=== PATIENT | male | born 1975 | race Caucasian/White ===

== ENCOUNTER 2016-09-21 11:54 | Emergency (ER) | payer BC, OTHER ==
[~2016-09-21] VITALS: Ht 182.9 cm; Wt 133.4 kg
[~2016-09-21 11:54] MED LIST: ALBU1AER9 INH; ONDA4TAB7 SL; ZNTT/150 PO
[2016-09-21 11:56] VITALS: TEMP 36.8; Ht 182.9 cm; Wt 133.4 kg
[2016-09-21] MEDS ORDERED: SODIUM CHLORIDE 0.9% 1000ML 1,000 ML IV STA (12:10)
[2016-09-21] MEDS ORDERED: KETOROLAC TROMETHAMINE 30 MG/ML VIAL IV STA (12:10)
[2016-09-21] MEDS ORDERED: ATOR-54 PO (12:17)
[2016-09-21] MEDS ORDERED: CARV6.252 PO (12:17)
[2016-09-21] MEDS ORDERED: VNTHFA/IN INH (12:17)
[2016-09-21] MEDS ORDERED: POTA20TA16 PO (12:17)
[2016-09-21] MEDS ORDERED: MTR800 PO (12:17)
[2016-09-21] MEDS ORDERED: ZNTT/150 PO (12:17)
[2016-09-21] MEDS ORDERED: GLC/500 PO (12:17)
[2016-09-21] MEDS ORDERED: TAMS0.4C38 PO ×2 (12:17→14:10)
[2016-09-21] MEDS ORDERED: TRAM-10 PO (12:17)
[2016-09-21] MEDS ORDERED: ONDA4TAB46 PO (12:17)
[2016-09-21] MEDS ORDERED: FURO-85 PO (12:17)
[2016-09-21] MEDS ORDERED: LISI-461 PO (12:17)
[2016-09-21] MEDS ORDERED: ASPI325T45 PO (12:18)
[2016-09-21 12:34] LABS: BASO % 0.3 %; BASO ABS # 0.02 K/uL (0-0.2); COMPLETE YES; EOS % 3.7 %; HEMATOCRIT 42.7 % (42-52); LYMPH ABS # 1.78 K/uL (1.2-3.4); MEAN CELL VOLUME 94.7 fL (80-100); MEAN CORPUSCULAR HEMOGLOBIN 32.4 pg (25-34); MEAN CORPUSCULAR HGB CONC 34.2 g/dl (32-36); MEAN PLATELET VOLUME 10.6 fL (7.4-10.4); MONO % 9.3 %; NEUT % 63.7 %; PLATELET COUNT 192 K/uL (130-400); RED BLOOD COUNT 4.51 M/uL (4.7-6.1); WHITE BLOOD COUNT 7.75 K/uL (4.8-10.8)
[2016-09-21 12:39] LABS: URINE APPEARANCE CLEAR (CLEAR); URINE BILIRUBIN NEG (NEG); URINE COLOR YELLOW; URINE EPITHELIAL CELL AUTO 0-5 /lpf (0-5); URINE NITRITE NEG (NEG); URINE SPECIFIC GRAVITY 1.017 (1.000-1.030); UROBILINOGEN NEG (NEG)
[2016-09-21 12:40] LABS: MANUAL MICROSCOPIC REQUIRED? NO; REVIEW REQ? NO
--- NOTE | 2016-09-21 13:07 | DIAGNOSTIC IMAGING REPORT ---
KUB HISTORY: Pt c/o Rt sided flank pain COMPARISON: Abdomen and pelvis CT 06/04/2013. FINDINGS: The bowel gas pattern is unremarkable. There are no dilated loops of small bowel to suggest an obstruction. Multiple calcifications within the right deep pelvis consistent with phlebolith. There is also 4 mm calcification overlying the right L5 transverse process. This likely represents a mid right ureteral stone. No renal calculi identified. No pneumoperitoneum or pneumatosis. IMPRESSION: A 4 mm calcification overlying the right L5 transverse process consistent with a mid right ureteral stone. Electronically signed by: Barrington Shelton M.D. 09/21/2016 1:06 PM Dictated Date/Time: 09/21/2016 1:02 PM
[2016-09-21 13:45] LABS: BUN/CREATININE RATIO 10.5 (10-20); CALCIUM 9.2 mg/dl (8.5-10.1); CREATININE 1.1 mg/dl (0.60-1.40); POTASSIUM 4.1 mmol/L (3.5-5.1)
--- NOTE | 2016-09-21 13:53 | DIAGNOSTIC IMAGING REPORT ---
EXAMINATION: RENAL ULTRASOUND CLINICAL HISTORY: Right flank pain KUB DATED 09/21/2016 COMPARISON STUDY: CT scan dated 06/04/2013 FINDINGS: The right kidney measures 14.8 cm. The left kidney measures 12.6 cm. There is mild to moderate right-sided hydronephrosis. There is no left-sided hydronephrosis. There are no renal masses. No bladder abnormalities are visualized. The left ureteral jet was visualized. The right ureteral jet was not visualized with certainty. IMPRESSION : Mild to moderate right-sided hydronephrosis. Given history of right flank pain, and the calcification visualized on the KUB, the findings are suspicious for an obstructing right ureteral calculus. Electronically signed by: Dima Macdonald M.D. 09/21/2016 1:52 PM Dictated Date/Time: 09/21/2016 1:50 PM
--- NOTE | 2016-09-21 13:54 | DIAGNOSTIC IMAGING REPORT ---
SCROTAL ULTRASOUND CLINICAL HISTORY: Right testicular pain. COMPARISON STUDY: None. TECHNIQUE: Grayscale and color and duplex Doppler sonography of the scrotum was performed. FINDINGS: The right testis measures 4.8 x 2.9 x 2.5 cm and the left measures 5 x 2.7 x 2.9 cm. Color flow within each testis is symmetric. There is no testicular mass. There is no evidence of epididymitis. There are small bilateral varicoceles. IMPRESSION: 1. Normal sonographic appearance of the testes. No evidence of testicular torsion. 2. No evidence of epididymitis. 3. Small bilateral varicoceles. Electronically signed by: Rajesh Camejo M.D. 09/21/2016 1:53 PM Dictated Date/Time: 09/21/2016 1:52 PM
[2016-09-21] MEDS ORDERED: TAMSULOSIN HCL 0.4 MG CAP PO ONE (14:00)
[2016-09-21] MEDS ORDERED: OXYC-57 PO (14:09)
--- NOTE | 2016-09-21 14:14 | EMERGENCY ROOM VISIT NOTE ---
History Report prepared by Melody: Jayden Peace Under the Supervision of: Dr. Riki Bang M.D. First contact with patient: 12:00 Chief Complaint: ABDOMINAL PAIN Stated Complaint: ABDOMINAL PAIN History of Present Illness The patient is a 40 year old male who presents to the Emergency Room with complaints of constant right lower quadrant abdominal pain beginning last week. He has a history of kidney stones. He had an ultrasound and CT last week which did not reveal any kidney stones. The patient also complains of right testicular swelling and right flank pain. He states that his pain is often improved with Toradol. He states that the pain in his back and abdomen generally worsens throughout the day. Source of History: patient Onset: Last week Position: abdomen (RLQ) Timing: constant Modifying Factors (Relieving): other (Toradol) Note: The patient also complains of right testicular swelling and right flank pain. Review of Systems See HPI for pertinent positives & negatives. A total of 10 systems reviewed and were otherwise negative. Past Medical & Surgical Medical Problems: (1) History of kidney stones Family History Diabetes mellitus FH: heart disease Hypertension Kidney stones Social History Smoking Status: Current Every Day Smoker Alcohol Use: occasionally Marital Status: Housing Status: lives with family Occupation Status: employed Current/Historical Medications Scheduled Aspirin (Aspirin), 325 MG PO DAILY Atorvastatin (Lipitor), 20 MG PO DAILY Carvedilol (Coreg), 6.25 MG PO BID Furosemide (Lasix), 20 MG PO DAILY Lisinopril (Zestril), 10 MG PO DAILY Metformin Hcl (Glucophage), 500 MG PO BID Potassium Ext Rel (Klor-Con), 20 MEQ PO DAILY Ranitidine (Zantac), 150 MG PO BID Tamsulosin Hcl (Flomax), 0.4 MG PO DAILY Tamsulosin Hcl (Flomax), 0.4 MG PO DAILY Scheduled PRN Albuterol Hfa (Ventolin Hfa), 2 PUFFS INH Q4H PRN for Cough Ibuprofen (Ibuprofen), 800 MG PO BID PRN for Pain Ondansetron Hcl (Zofran), 4 MG PO Q6 PRN for Nausea Oxycodone/Acetaminophen 5MG/325MG (Percocet 5MG/325MG), 1-2 TAB PO Q4H PRN for Pain Tramadol (Ultram), 50 MG PO Q8H PRN for Pain Allergies Coded Allergies: No Known Allergies (Verified Allergy, _, 03/14/09) Physical Exam Vital Signs Date Time Temp Pulse Resp B/P Pulse Ox O2 Delivery O2 Flow Rate FiO2 09/21/16 14:28 64 16 140/81 96 09/21/16 13:47 58 16 131/84 96 Room Air 09/21/16 12:30 60 09/21/16 11:56 36.8 70 18 152/96 93 Room Air Physical Exam GENERAL: Patient is a healthy-appearing well-nourished HEAD: Normocephalic atraumatic EYES: Ocular movements intact pupils equal and react to light OROPHARYNX mucous membranes are moist no exudates present no erythema or edema present NECK: Supple no nuchal rigidity CHEST: Good equal expansion LUNGS: Clear and equal to auscultation CARDIAC: Normal S1 and S2 ABDOMEN: Soft nontender no guarding BACK: No CVA tenderness EXTREMITIES: No pain upon palpation normal muscle strength in all groups no clubbing cyanosis or edema NEURO: Patient is following commands is answering questions appropriately. Alert and oriented x3 Cranial Nerves 2-12 grossly intact Medical Decision & Procedures ER Provider Diagnostic Interpretation: X-ray results as stated below per interpretation by me and the radiologist. US results as stated below per my review and radiologist interpretation: SCROTAL ULTRASOUND FINDINGS: The right testis measures 4.8 x 2.9 x 2.5 cm and the left measures 5 x 2.7 x 2.9 cm. Color flow within each testis is symmetric. There is no testicular mass. There is no evidence of epididymitis. There are small bilateral varicoceles. IMPRESSION: 1. Normal sonographic appearance of the testes. No evidence of testicular torsion. 2. No evidence of epididymitis. 3. Small bilateral varicoceles. Electronically signed by: Rajesh Camejo M.D. EXAMINATION: RENAL ULTRASOUND FINDINGS: The right kidney measures 14.8 cm. The left kidney measures 12.6 cm. There is mild to moderate right-sided hydronephrosis. There is no left-sided hydronephrosis. There are no renal masses. No bladder abnormalities are visualized. The left ureteral jet was visualized. The right ureteral jet was not visualized with certainty. IMPRESSION : Mild to moderate right-sided hydronephrosis. Given history of right flank pain, and the calcification visualized on the KUB, the findings are suspicious for an obstructing right ureteral calculus. Electronically signed by: Dima Macdonald M.D. KUB FINDINGS: The bowel gas pattern is unremarkable. There are no dilated loops of small bowel to suggest an obstruction. Multiple calcifications within the right deep pelvis consistent with phlebolith. There is also 4 mm calcification overlying the right L5 transverse process. This likely represents a mid right ureteral stone. No renal calculi identified. No pneumoperitoneum or pneumatosis. IMPRESSION: A 4 mm calcification overlying the right L5 transverse process consistent with a mid right ureteral stone. Electronically signed by: Barrington Shelton M.D. Laboratory Results 09/21/16 12:20 Red Blood Count 4.51, Mean Corpuscular Volume 94.7, Mean Corpuscular Hemoglobin 32.4, Mean Corpuscular Hemoglobin Concent 34.2, Mean Platelet Volume 10.6, Neutrophils (%) (Auto) 63.7, Lymphocytes (%) (Auto) 23.0, Monocytes (%) (Auto) 9.3, Eosinophils (%) (Auto) 3.7, Basophils (%) (Auto) 0.3, Neutrophils # (Auto) 4.94, Lymphocytes # (Auto) 1.78, Monocytes # (Auto) 0.72, Eosinophils # (Auto) 0.29, Basophils # (Auto) 0.02 09/21/16 12:20 Test 09/21/16 12:20 White Blood Count 7.75 K/uL (4.8-10.8) Red Blood Count 4.51 M/uL (4.7-6.1) Hemoglobin 14.6 g/dL (14.0-18.0) Hematocrit 42.7 % (42-52) Mean Corpuscular Volume 94.7 fL (80-100) Mean Corpuscular Hemoglobin 32.4 pg (25-34) Mean Corpuscular Hemoglobin Concent 34.2 g/dl (32-36) Platelet Count 192 K/uL (130-400) Mean Platelet Volume 10.6 fL (7.4-10.4) Neutrophils (%) (Auto) 63.7 % Lymphocytes (%) (Auto) 23.0 % Monocytes (%) (Auto) 9.3 % Eosinophils (%) (Auto) 3.7 % Basophils (%) (Auto) 0.3 % Neutrophils # (Auto) 4.94 K/uL (1.4-6.5) Lymphocytes # (Auto) 1.78 K/uL (1.2-3.4) Monocytes # (Auto) 0.72 K/uL (0.11-0.59) Eosinophils # (Auto) 0.29 K/uL (0-0.5) Basophils # (Auto) 0.02 K/uL (0-0.2) RDW Standard Deviation 44.5 fL (36.4-46.3) RDW Coefficient of Variation 12.8 % (11.5-14.5) Immature Granulocyte % (Auto) 0.0 % Immature Granulocyte # (Auto) 0.00 K/uL (0.00-0.02) Urine Color YELLOW Urine Appearance CLEAR (CLEAR) Urine pH 5.0 (4.5-7.5) Urine Specific [place] 1.017 (1.000-1.030) Urine Protein NEG (NEG) Urine Glucose (UA) NEG (NEG) Urine Ketones NEG (NEG) Urine Occult Blood 1+ (NEG) Urine Nitrite NEG (NEG) Urine Bilirubin NEG (NEG) Urine Urobilinogen NEG (NEG) Urine Leukocyte Esterase NEG (NEG) Urine WBC (Auto) 1-5 /hpf (0-5) Urine RBC (Auto) 0-4 /hpf (0-4) Urine Hyaline Casts (Auto) 1-5 /lpf (0-5) Urine Epithelial Cells (Auto) 0-5 /lpf (0-5) Urine Bacteria (Auto) NEG (NEG) Anion Gap 8.0 mmol/L (3-11) Est Creatinine Clear Calc Drug Dose 124.9 ml/min Estimated GFR () 96.1 Estimated GFR (Non- 82.9 BUN/Creatinine Ratio 10.5 (10-20) Calcium Level 9.2 mg/dl (8.5-10.1) Total Bilirubin 0.3 mg/dl (0.2-1) Direct Bilirubin 0.1 mg/dl (0-0.2) Aspartate Amino Transf (AST/SGOT) 12 U/L (15-37) Alanine Aminotransferase (ALT/SGPT) 26 U/L (12-78) Alkaline Phosphatase 104 U/L (45-117) Total Protein 7.9 gm/dl (6.4-8.2) Albumin 3.9 gm/dl (3.4-5.0) Lipase 135 U/L (73-393) Labs reviewed by ED physician. Medications Administered Medications (Trade) Dose Ordered Sig/Corin Route Start Time Stop Time Status Last Admin Dose Admin Sodium Chloride (Nss 1000ml) 1,000 ml @ 999 mls/hr Q1H1M STAT IV 09/21/16 12:10 09/21/16 13:10 DC 09/21/16 12:28 999 MLS/HR Ketorolac Tromethamine (Toradol Inj) 30 mg NOW STAT IV 09/21/16 12:10 09/21/16 12:13 DC 09/21/16 12:27 30 MG Tamsulosin HCl (Flomax Cap) 0.4 mg NOW ONCE PO 09/21/16 14:00 09/21/16 14:01 DC 09/21/16 14:22 0.4 MG ED Course 1202: Past medical records reviewed. The patient was evaluated in room C7. A complete history and physical examination was performed. 1210: Ordered Toradol Inj 30 mg IV, Sodium Chloride 1000 ml @ 999 mls/hr. 1400: Ordered Flomax Cap 0.4 mg PO. 1413: Upon reexamination the patient is resting comfortably. I discussed results and treatment plan with the patient. He verbalizes agreement and understanding. The patient is ready for discharge. Medical Decision Differential diagnosis: Etiologies such as renal colic, appendicitis, diverticulitis, mesenteric ischemia, aortic pathology, infections, inflammatory bowel disease, PUD, biliary pathology, UTI, as well as others were entertained. This is a 40-year-old male who presents emergency department after having a CAT scan performed at [facility] and another CAT scan performed at [facility]. The patient reports he does not have answers as to why he is having abdominal pain that is on the right side. Does have a history of kidney stones. I was able to access [facility]'s records on this patient however the only thing present is an ultrasound. We were unable to obtain a CAT scan from [facility] however the patient does have hydronephrosis on ultrasound and what appears to be 4 mm calculi on KUB. Based on these findings I do believe the patient is probably suffering from a kidney stone. An IV was established, patient given normal saline bolus, Toradol. Repeat examination revealed improvement patient's symptoms. I recommended the patient follow-up with urology. Patient and family were in agreement with the treatment plan. Impression Primary Impression: Kidney stone Scribe Attestation The scribe's documentation has been prepared under my direction and personally reviewed by me in its entirety. I confirm that the note above accurately reflects all work, treatment, procedures, and medical decision making performed by me. Departure Information Dispostion Home / Self-Care Prescriptions Tamsulosin Hcl (FLOMAX) 0.4 Mg Cap 0.4 MG PO DAILY for 7 Days, #7 CAP Prov: Riki Bang MD 09/21/16 Oxycodone/Acetaminophen 5MG/325MG (PERCOCET 5MG/325MG) Tab 1-2 TAB PO Q4H Y for Pain, #14 TAB Prov: Riki Bang MD 09/21/16 Referrals Schuyler Resendiz M.D. (PCP) Forms Call Back Authorization, HOME CARE DOCUMENTATION FORM, IMPORTANT VISIT INFORMATION Patient Instructions Kidney Stones Expectant Therapy, Kidney Stones Prevent, Kidney Stones Risk, My [facility] Additional Instructions Follow up with DR Presley's office You received narcotic or benzodiazepene medication while in the emergency room today. Do not drive, operate heavy machinery, or drink alcohol under the influence of this medication. Take 600 mg Ibuprofen every 6 hours Take Percocet for breakthrough pain Culture results are usually available in approx 48 hours You have been examined and treated today on an emergency basis only. This is not a substitute for, or an effort to provide, complete comprehensive medical care. It is impossible to recognize and treat all injuries or illnesses in a single emergency department visit. It is therefore important that you follow up closely with Dr Resendiz. Call as soon as possible for an appointment. Thank you for your time and consideration. I look forward to speaking with you again soon. Please don't hesitate to call us if you have any questions.
[2016-09-21 14:28] VITALS: BP 140/81; PULSE 64; O2SAT 96
[2016-09-23] MEDS ORDERED: ASPCH81X PO (15:21)
[2016-09-25] MEDS ORDERED: OXYC-57 PO (08:31)
== END 2016-09-21 14:30 | disposition home or self-care (01) ==
LOC: C.EDB 11:56 → C.EDC 14:30
DX: N20.0 Calculus of kidney (principal); Z83.3 Family history of diabetes mellitus; Z82.49 Family history of ischemic heart disease and other diseases of the circulatory system; Z84.1 Family history of disorders of kidney and ureter; F17.210 Nicotine dependence, cigarettes, uncomplicated; Z79.82 Long term (current) use of aspirin; Z79.899 Other long term (current) drug therapy

== ENCOUNTER → 2016-09-22 | Outpatient (CLI) | payer BC ==
[~2016-09-22] MED LIST changes: -ALBU1AER9 INH; +ASPCH81X PO; +ASPI325T45 PO; +ATOR-54 PO; +CARV6.252 PO; +FURO-85 PO; +GLC/500 PO; +LISI-461 PO; +MTR800 PO; +ONDA4TAB46 PO; -ONDA4TAB7 SL; +OXYC-57 PO; +POTA20TA16 PO; +TAMS0.4C38 PO; +TRAM-10 PO; +VNTHFA/IN INH
== END | disposition home or self-care (01) ==
LOC: C.LABSPEC 17:13
PROVIDERS: ATTEND Nurse Practitioner Family
DX: N20.0 Calculus of kidney (principal)

== ENCOUNTER → 2016-09-25 | Day surgery (SDC) | payer BC ==
[2016-09-23 15:22] VITALS: Ht 182.9 cm; Wt 132.7 kg
--- NOTE | 2016-09-24 11:26 | DIAGNOSTIC IMAGING REPORT ---
KUB CLINICAL HISTORY: N20.0 Nephrolithiasis BE DONE EITHER THE NIGHT BEFORE OR MORN COMPARISON STUDY: 09/21/2016 FINDINGS: The mid right ureteral calculus has traveled distally and now overlies the mid sacrum. Bowel pattern is considered nonobstructive. IMPRESSION: Interval distal migration of the patient's mid right ureteral calculus. It now lies occupies a position overlying the mid right sacrum Electronically signed by: Kwame Seals M.D. 09/24/2016 11:24 AM Dictated Date/Time: 09/24/2016 11:23 AM
[~2016-09-25] VITALS: Ht 182.9 cm; Wt 132.7 kg
[~2016-09-25] MED LIST changes: +ACETAMINOPHEN 325 MG TAB PO PRN; -ASPI325T45 PO; +ATROPINE SULFATE 0.1 MG/ML 5ML SYR IV PRN; +CIPROFLOXACIN 400MG / D5W IV SCH; +EpHEDrine SULFATE INJ 50 MG/ML AMP IV PRN; +FENTANYL CITRATE INJ 50 MCG/1 ML 2 ML VIAL ONE; +HYDROmorphone INJ 1 MG/ML SYR IV PRN; +LACTATED RINGER'S 1000ML 1,000 ML IV SCH; +LIDOCAINE HCL 2% 2 ML VIAL (20MG/ML) ONE; +MIDAZOLAM HCL 1 MG/ML 2ML VIAL ONE; +ONDANSETRON INJ 2 MG/ML 2 ML VIAL IV PRN; +ONDANSETRON INJ 2 MG/ML 2 ML VIAL ONE; +OXYCODONE/ACETAMINOPHEN 5-325 TAB ONE; +OXYCODONE/ACETAMINOPHEN 5-325 TAB PO PRN; +PROPOFOL IV EMULSION 10 MG/ML 20 ML VIAL IV ONE; +SODIUM CHLORIDE 0.9% 1000ML 1,000 ML IV SCH; -TRAM-10 PO
--- NOTE | 2016-09-25 07:05 | History & Physical Bridge Note ---
H&P Re-Evaluation Bridge Note: I have examined the patient, reviewed the History & Physical and in the interval since the performance of the History & Physical I have noted the following changes of clinical significance: No changes noted
--- NOTE | 2016-09-25 08:30 | [facility] Post Operative Brief Note ---
Immediate Operative Summary Operative Date September 25, 2016. Pre-Operative Diagnosis Right Ureteral Calculi Post-Operative Diagnosis Same Procedure(s) Performed Right Renal Repeat Extracorporeal Shock Wave Lithotripsy Surgeon Dr. Flor Certified Ophthalmic Technologist Surgeon(s) None Estimated Blood Loss 0 mL Findings right mid/distal ureteral calculus - appeared to fragment Specimens None Drains none Anesthesia gen Complication(s) None Disposition Recovery Room / PACU (stable)
--- NOTE | 2016-09-25 08:35 | Discharge Instructions-SurgCtr ---
Discharge Instructions Date of Service September 25, 2016. Visit Reason for Visit: Stones Discharge Discharge Diagnosis / Problem: stone Discharge Goals Goal(s): Decrease discomfort, Improve function, Increase independence, Improve disease control Medications Stopped Medications Name(s): Aspirin last dose 09/22/16, metformin last dose 09/22/16 Activity Recommendations Activity Limitations: resume your previous activity Lifting Limitations: none Exercise/Sports Limitations: none May Resume Sexual Activity: when tolerated Shower/Bathe: no limitations Driving or Machine Use: resume 1 day after discharge Anesthesia . Post Anesthesia Instructions: If you have had General Anesthesia or IV Sedation: * Do not drive today. * Resume driving when surgeon permits. * Do not make important decisions or sign legal documents today. * Call surgeon for: 1. Temperature elevations greater than 101 degrees F. 2. Uncontrollable pain. 3. Excessive bleeding. 4. Persistent nausea and vomiting. 5. Medication intolerance (nausea, vomiting or rash). * For nausea and vomiting use only clear liquids such as: tea, soda, bouillon until nausea subsides, then gradually increase diet as tolerated. * If you have any concerns or questions, call your surgeon's office. If physician is unavailable and it is an emergency, call 911 or go to the nearest emergency room. . Instructions / Follow-Up Instructions / Follow-Up Please keep your previously scheduled follow up appointment Diet Recommendations Home Diet: no limitations, resume previous diet Procedures Procedures Performed: Right Renal Repeat Extracorporeal Shock Wave Lithotripsy Pending Studies Studies pending at discharge: no Medical Emergencies . Who to Call and When: Medical Emergencies: If at any time you feel your situation is an emergency, please call 911 immediately. . Non-Emergent Contact Non-Emergency issues call your: Urologist Call Non-Emergent contact if: you have a fever, temperature is above 101.5, your pain is not controlled, your pain is worsening . . "Provider Documentation" section prepared by Vijay Clay. . [place] Drug Monitoring Program Search Results: patient reviewed within database, no issues identified
[2016-09-25] MEDS: FENTANYL CITRATE INJ 50 MCG/1 ML 2 ML VIAL IV PRN ×2 (09:05→09:11)
[2016-09-25 09:40] VITALS: TEMP 36.5
[2016-09-25 10:00] VITALS: BP 155/96; PULSE 52; O2SAT 96
--- NOTE | 2016-09-25 10:00 | Anesthesia Progress Nt - [facility] ---
Anesthesia Post Op Note Date & Time September 25, 2016 at 10:01 Vital Signs Pain Intensity: 7.0 Vital Signs Past 12 Hours Date Time Temp Pulse Resp B/P Pulse Ox O2 Delivery O2 Flow Rate FiO2 09/25/16 09:40 36.5 54 16 165/91 97 Room Air 09/25/16 09:21 56 22 09/25/16 09:21 56 22 129/75 94 09/25/16 09:20 37.0 60 20 129/75 95 Room Air 09/25/16 09:16 56 15 09/25/16 09:16 57 15 150/82 95 09/25/16 09:11 57 17 09/25/16 09:11 58 17 130/76 100 09/25/16 09:06 56 15 131/73 100 09/25/16 09:06 56 15 09/25/16 09:01 54 16 09/25/16 09:01 55 16 143/78 100 09/25/16 08:56 56 17 145/75 100 09/25/16 08:56 56 17 09/25/16 08:51 57 15 09/25/16 08:51 57 15 100 09/25/16 08:50 127/91 09/25/16 08:46 61 18 100 09/25/16 08:46 61 18 09/25/16 08:45 135/98 09/25/16 08:42 153/108 09/25/16 08:41 59 98 09/25/16 08:41 36.9 60 20 158/108 98 Mask 5 09/25/16 08:41 59 09/25/16 06:34 36.6 62 18 144/85 96 Room Air Notes Mental Status: alert / awake / arousable, participated in evaluation Pt Amnestic to Procedure: Yes Nausea / Vomiting: adequately controlled Pain: adequately controlled Airway Patency, RR, SpO2: stable & adequate BP & HR: stable & adequate Hydration State: stable & adequate Anesthetic Complications: no major complications apparent
--- NOTE | 2016-09-25 12:20 | OPERATIVE REPORT ---
DATE OF OPERATION: 09/25/2016 PREOPERATIVE DIAGNOSIS: Right ureteral calculus. POSTOPERATIVE DIAGNOSIS: Right ureteral calculus. PROCEDURE PERFORMED: Right extracorporeal shockwave lithotripsy. ANESTHESIA: General. ESTIMATED BLOOD LOSS: 0. URINE OUTPUT: Not recorded. SPECIMENS: None. DRAINS: None. COMPLICATIONS: None. DESCRIPTION OF THE PROCEDURE: Eligio Jeffries was identified in the preoperative holding area. Appropriate informed consents were reviewed and completed and the patient was transported to the operating suite. Upon arrival, he received appropriate preoperative antibiotics and general anesthesia. His ureteral stone was localized under fluoroscopy and lithotripsy commenced with a total of 3000 shocks delivered. At the conclusion of the case, he was extubated and taken to the PACU in stable condition. Further details can be found on the [place] Kidney Stone Management Information Sheet. I attest to the content of the Intraoperative Record and any orders documented therein. Any exceptio ns are noted below.
== END | disposition home or self-care (01) ==
LOC: X.SURG 06:18
PROVIDERS: ATTEND Urology
DX: N20.1 Calculus of ureter (principal); E11.9 Type 2 diabetes mellitus without complications; I25.10 Atherosclerotic heart disease of native coronary artery without angina pectoris; F17.200 Nicotine dependence, unspecified, uncomplicated; I10 Essential (primary) hypertension; I25.2 Old myocardial infarction; G47.33 Obstructive sleep apnea (adult) (pediatric); Z79.82 Long term (current) use of aspirin; Z68.41 Body mass index [BMI] 40.0-44.9, adult; Z98.890 Other specified postprocedural states; Z83.3 Family history of diabetes mellitus; Z84.1 Family history of disorders of kidney and ureter

== ENCOUNTER → 2016-10-05 | Outpatient (CLI) | payer BC ==
[~2016-10-05] MED LIST changes: -ACETAMINOPHEN 325 MG TAB PO PRN; -ATROPINE SULFATE 0.1 MG/ML 5ML SYR IV PRN; -CIPROFLOXACIN 400MG / D5W IV SCH; -EpHEDrine SULFATE INJ 50 MG/ML AMP IV PRN; -FENTANYL CITRATE INJ 50 MCG/1 ML 2 ML VIAL ONE; -HYDROmorphone INJ 1 MG/ML SYR IV PRN; -LACTATED RINGER'S 1000ML 1,000 ML IV SCH; -LIDOCAINE HCL 2% 2 ML VIAL (20MG/ML) ONE; -MIDAZOLAM HCL 1 MG/ML 2ML VIAL ONE; -ONDANSETRON INJ 2 MG/ML 2 ML VIAL IV PRN; -ONDANSETRON INJ 2 MG/ML 2 ML VIAL ONE; -OXYCODONE/ACETAMINOPHEN 5-325 TAB ONE; -OXYCODONE/ACETAMINOPHEN 5-325 TAB PO PRN; -PROPOFOL IV EMULSION 10 MG/ML 20 ML VIAL IV ONE; -SODIUM CHLORIDE 0.9% 1000ML 1,000 ML IV SCH
--- NOTE | 2016-10-05 16:07 | DIAGNOSTIC IMAGING REPORT ---
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 Several pelvic vascular calcifications unchanged. Nonobstructive bowel pattern. IMPRESSION: Continued distal migration of the patient's right ureteral calculus now at or medially proximal to the right ureterovesical junction. Electronically signed by: Kwame Seals M.D. 10/05/2016 4:05 PM Dictated Date/Time: 10/05/2016 4:04 PM
== END | disposition home or self-care (01) ==
LOC: C.RAD 15:43
PROVIDERS: ATTEND Nurse Practitioner Family
DX: N20.2 Calculus of kidney with calculus of ureter (principal)